=== PATIENT | female | born 1990 | race Caucasian/White ===

== ENCOUNTER 2017-05-15 01:07 | Emergency (ER) | payer OTHER ==
[~2017-05-15] VITALS: Ht 170.2 cm; Wt 72.6 kg
[~2017-05-15 01:07] MED LIST: ANXIETY MED; BENTYL10 MG PO; PRENATAL1 TA1 PO; SYNTHROID; ZOFRANODT PO
[2017-05-15] MEDS ORDERED: FLONASE 0.05% N16 G1 (01:14)
[2017-05-15] MEDS ORDERED: ADDERALL20 MG (01:14)
== END 2017-05-15 01:58 | disposition home or self-care (01) ==
LOC: SED 01:07
DX: J06.9 Acute upper respiratory infection, unspecified (principal); F17.200 Nicotine dependence, unspecified, uncomplicated
CPT/HCPCS: 99284

== ENCOUNTER 2017-05-16 03:29 | Emergency (ER) | payer OTHER ==
[~2017-05-16] VITALS: Ht 170.2 cm; Wt 72.6 kg
[~2017-05-16 03:29] MED LIST changes: +ADDERALL20 MG; +FLONASE 0.05% N16 G1
== END 2017-05-16 05:21 | disposition home or self-care (01) ==
LOC: SED 03:29
DX: J45.901 Unspecified asthma with (acute) exacerbation (principal); F17.200 Nicotine dependence, unspecified, uncomplicated
CPT/HCPCS: 99283